=== PATIENT | female | born 1975 | race African-American/Black ===

== ENCOUNTER → 2016-08-01 | Outpatient (CLI) | payer OTHER | LOC: RAD 14:06 | DX: Z12.31 Encounter for screening mammogram for malignant neoplasm of breast (principal) ==

== ENCOUNTER → 2016-08-06 | Outpatient (CLI) | payer OTHER | LOC: ULTRA 12:49 | DX: N63 Unspecified lump in breast (principal); N60.09 Solitary cyst of unspecified breast ==